=== PATIENT | male | born 1960 | race Caucasian/White ===

== ENCOUNTER 2019-08-12 07:03 | Day surgery (SDC) | payer BC ==
[~2019-08-12 07:03] MED LIST: Cefuroxime 10 MG/ML SYRINGE EYERT SCH; Lidocaine 1% PF 2 ML SDV INJECT SCH; Pilocarpine 4% Ophth Soln 15 ML Bot EYERT SCH
--- NOTE | 2019-08-12 07:48 | PCM.PREANE ---
Preanesthetic Assessment - Procedure Proposed Procedure: cataract right - Anesthesia/Transfusion/Family Hx Anesthesia History: Prior Anesthesia Without Reaction Family History of Anesthesia Reaction: No Transfusion History: No Prior Transfusion(s) - Review of Systems General: No Symptoms Pulmonary: No Symptoms Cardiovascular: No Symptoms Gastrointestinal: No Symptoms Neurological: No Symptoms Other: Reports: Diabetes - Physical Assessment NPO Status Date: 08/11/19 NPO Status Time: 22:30 Vital Signs: 88 148/85 98.4 16 97% Height: 5 ft 9 in Weight: 87.09 kg ASA Class: 2 Mental Status: Alert & Oriented x3 Airway Class: Mallampati = 1 Dentition: Reports: Broken Tooth/Teeth, Missing Tooth/Teeth, Caries Thyro-Mental Finger Breadths: 3 Mouth Opening Finger Breadths: 3 ROM/Head Extension: Full Lungs: Clear to Auscultation, Normal Respiratory Effort Cardiovascular: Regular Rate, Regular Rhythm - Allergies Allergies/Adverse Reactions: Allergies Allergy/AdvReac Type Severity Reaction Status Date / Time codeine AdvReac Chest Pain Verified 08/05/19 12:39 - Blood Blood Available: No - Anesthesia Plan Beta Little: Atenolol Med Last Dose Date: 08/12/19 Med Last Dose Time: 05:30 - Acknowledgements Anesthesia Type Planned: MAC Pt an Appropriate Candidate for the Planned Anesthesia: Yes Alternatives and Risks of Anesthesia Discussed w Pt/Guardian: Yes Pt/Guardian Understands and Agrees with Anesthesia Plan: Yes PreAnesthesia Questionnaire Cardiovascular History: Reports: Bypass (2000), High Cholesterol, Hypertension, Stents () Gastrointestinal History: Reports: GERD - Past Surgical History Cardiovascular Surgical History: Reports: Coronary Artery Bypass, Coronary Artery Stent GI Surgical History: Reports: Cholecystectomy Musculoskeletal Surgical History: Reports: Arthroscopic Knee - SUBSTANCE USE Smoking Status *Q: Current Every Day Smoker Tobacco Use Within Last Twelve Months: Cigarettes Second Hand Smoke Exposure: Yes Days Per Week of Alcohol Use: 3 Number of Drinks Per Day: 2 (beer) Total Drinks Per Week: 6 Recreational Drug Use History: No - HOME MEDS Home Medications: Home Meds Atenolol [Tenormin] 50 mg PO DAILY 11/19/14 [History] Lisinopril 10 mg PO DAILY 11/19/14 [History] Omeprazole 40 mg PO DAILY 11/19/14 [History] metFORMIN [Glucophage] 2,000 mg PO QPM 11/19/14 [History] Clopidogrel Bisulfate [Clopidogrel] 75 mg PO DAILY 08/11/19 [History] Dapagliflozin Propanediol [Farxiga] 10 mg PO DAILY 08/11/19 [History] Fenofibrate Nanocrystallized [Tricor] 145 mg PO DAILY 08/11/19 [History] Isosorbide Mononitrate [Imdur] 60 mg PO DAILY 08/11/19 [History] Liraglutide [Victoza] 1.2 squirt PO DAILY 08/11/19 [History] Nitroglycerin 0.4 mg SL ASDIRECTED PRN 08/11/19 [History] amLODIPine Besylate [Amlodipine Besylate] 10 mg PO DAILY 08/11/19 [History] atorvaSTATin Calcium [Atorvastatin Calcium] 80 mg PO DAILY 08/11/19 [History] - CURRENT (IN HOUSE) MEDS Current Meds: Current Medications Brimonidine Tartrate (Alphagan 0.2% Ophth Soln) 0 ml EYERT ASDIRECTED TYSHAWN Stop: 08/12/19 18:00 Cefuroxime Sodium (Zinacef) 0 mg EYERT ASDIRECTED TYSHAWN Stop: 08/12/19 18:00 Lidocaine HCl (Xylocaine-Mpf 1%) 1 ml INJECT ASDIRECTED TYSHAWN Stop: 08/12/19 18:00 Phenylephrine HCl (Vin-Synephrine 2.5% Ophth Soln) 0 ml EYERT ASDIRECTED TYSHAWN Stop: 08/12/19 18:00 Pilocarpine HCl (Pilocar 4% Ophth Soln) 0 ml EYERT ASDIRECTED TYSHAWN Stop: 08/12/19 18:00 Polymyxin/Trimethoprim Sulfate (Polytrim Ophth Soln) 0 ml EYERT ASDIRECTED TYSHAWN Stop: 08/12/19 18:00 Tetracaine HCl (Tetracaine 0.5% Steri-Unit [place]) 0 ml EYERT ASDIRECTED TYSHAWN Stop: 08/12/19 18:00 Tropicamide (Mydriacyl 1% Oph Soln) 0 ml EYERT ASDIRECTED TYSHAWN Stop: 08/12/19 18:00
[2019-08-12] MEDS: Polymyxin B/Trimethoprim 10 ML Bottle EYERT SCH ×3 (08:30→10:16)
[2019-08-12] MEDS: Brimonidine 0.2% Ophth Soln 5 ML Bottle EYERT SCH ×3 (08:41→10:16)
[2019-08-12] MEDS: Phenylephrine 2.5% Ophth Soln 2 ML Bot EYERT SCH ×5 (08:45→09:44)
[2019-08-12] MEDS: Tropicamide 1% Ophth Soln 15 ML Bottle EYERT SCH ×4 (08:49→09:24)
[2019-08-12] MEDS: Tetracaine HCl/PF 0.5% 4 ML Bottle EYERT SCH ×2 (09:34→09:54)
--- NOTE | 2019-08-12 10:17 | PCM48HPAN ---
Post Anesthesia Note - EVALUATION WITHIN 48HRS OF ANESTHETIC Vital Signs in Normal Range: Yes Patient Participated in Evaluation: Yes Respiratory Function Stable: Yes Airway Patent: Yes Cardiovascular Function Stable: Yes Hydration Status Stable: Yes Pain Control Satisfactory: Yes Nausea and Vomiting Control Satisfactory: Yes Mental Status Recovered: Yes Vital Signs: Last Vital Signs Temp 98.4 F 08/12/19 07:25 Pulse 88 08/12/19 07:25 Resp 16 08/12/19 07:25 BP 148/85 H 08/12/19 07:25 Pulse Ox 97 08/12/19 07:25 99% 82 16 119/84
[2019-08-12 10:31] VITALS: BP 134/80; PULSE 83
== END 2019-08-12 10:25 | disposition home or self-care (01) ==
LOC: JD.SDS 07:03
PROVIDERS: ATTEND Ophthalmology
DX: E11.36 Type 2 diabetes mellitus with diabetic cataract (principal); H25.031 Anterior subcapsular polar age-related cataract, right eye; H26.131 Total traumatic cataract, right eye; H21.81 Floppy iris syndrome; H21.41 Pupillary membranes, right eye; E78.00 Pure hypercholesterolemia, unspecified; K21.9 Gastro-esophageal reflux disease without esophagitis; F17.200 Nicotine dependence, unspecified, uncomplicated; Z95.5 Presence of coronary angioplasty implant and graft; Z83.518 Family history of other specified eye disorder; Z79.4 Long term (current) use of insulin
CPT/HCPCS: 66982; J0697; J2001